=== PATIENT | female | born 1985 | race Caucasian/White ===

== ENCOUNTER 2019-03-07 23:55 | Emergency (ER) | payer MEDICAID, OTHER ==
[~2019-03-07] VITALS: Ht 160 cm; Wt 62.6 kg
--- NOTE | 2019-03-08 00:35 | NUR ---
PT BIBSELF C/O "I FEEL LIKE I HAVE SOMETHING INSIDE ME." PT AXO4. RESPIRATIONS EVEN AND UNLABORED. PT RESTLESS, ADMITS TO TAKING METH YESTERDAY. PT AMBULATED WITH STEADY GAIT TO BED 12. PENDING EVAL FROM SUKUMAR BISHOP.
[2019-03-08 01:14] LABS: BASOPHILS % (AUTO) 0.3 % (0.0-2.0); EOSINOPHILS % (AUTO) 0.4 % (0.0-6.0); HEMATOCRIT 36 % (33-45); HEMOGLOBIN 12.5 g/dL (11.5-14.8); LYMPHOCYTES # (AUTO) 2.5 /CMM (0.8-4.8); LYMPHOCYTES % (AUTO) 26.1 % (20.0-44.0); MEAN CORPUSCULAR HGB CONC 34 g/dl (31.0-36.0); MEAN CORPUSCULAR VOLUME 89 fL (82-100); MONOCYTES # (AUTO) 0.8 /CMM (0.1-1.30); MONOCYTES % (AUTO) 8.2 % (2.0-12.0); NEUTROPHILS # (AUTO) 6.2 /CMM (1.8-8.9); PLATELET COUNT (AUTO) 297 /CMM (150-450); RED BLOOD CELL COUNT(AUTO) 4.08 MIL/uL (4.0-5.2); WHITE BLOOD COUNT (AUTO) 9.5 K/uL (4.3-11.0)
[2019-03-08 01:18] LABS: APPEARANCE,URINE Clear (CLEAR); BILIRUBIN,URINE SMALL (NEGATIVE); BLOOD, URINE Trace-intact Ery/uL (NEGATIVE); COLOR,URINE Yellow (YELLOW); KETONES,URINE Negative (NEGATIVE); LEUKOCYTE ESTERASE ,URINE Negative (NEGATIVE); NITRITE, URINE Negative (NEGATIVE); PROTEIN,URINE 30 mg/dl (NEGATIVE); UGLUCOSE Negative (NEGATIVE); UROBILINOGEN,URINE 0.2 EU/dL (0.2)
[2019-03-08 01:20] LABS: CALCIUM, SERUM 8.7 mg/dL (8.5-10.1); CREATININE 0.8 mg/dL (0.6-1.3); POTASSIUM 3.8 mmol/L (3.5-5.1)
[2019-03-08 01:29] LABS: ALBUMIN 3.4 g/dL (3.4-5.0); BILIRUBIN,DIRECT 0.1 mg/dL (0.0-0.2); BILIRUBIN,TOTAL 0.2 mg/dL (0.2-1.0); TOTAL PROTEIN, SERUM 7.3 g/dL (6.4-8.2)
[2019-03-08 02:27] LABS: BACTERIA,URINE Few /HPF (None Seen); RBC,URINE 21-50 /HPF (0-2); SQUAMOUS EPITHELIAL CELL,UR Few /HPF (None Seen); WBC,URINE 21-50 /HPF (0-3)
--- NOTE | 2019-03-08 03:11 | NUR ---
Female cover stripper accompanied female patient for DR ALFONSO.
[2019-03-08] MEDS ORDERED: CEFTRIAXONE 500 MG VIAL ONE (03:13)
[2019-03-08] MEDS ORDERED: LIDOCAINE 1% INJ 50 ML MDV IJ ONE (03:13)
[2019-03-08] MEDS ORDERED: AZITHROMYCIN 250 MG TABLET ONE (03:14)
[2019-03-08] MEDS ORDERED: CEFTRIAXONE 1 G VIAL IM ONE (03:30)
[2019-03-08] MEDS ORDERED: AZITHROMYCIN 250 MG TABLET PO ONE (03:30)
--- NOTE | 2019-03-08 04:43 | NUR ---
Patient discharged to home in stable condition. Written and verbal after care instructions given. Patient verbalizes understanding of instruction.
[2019-03-08 04:44] VITALS: BP 139/80
== END 2019-03-08 04:44 | disposition home or self-care (01) ==
LOC: ER 23:57
DX: K80.20 Calculus of gallbladder without cholecystitis without obstruction (principal); F15.10 Other stimulant abuse, uncomplicated; F11.10 Opioid abuse, uncomplicated; F17.210 Nicotine dependence, cigarettes, uncomplicated; Z98.890 Other specified postprocedural states; Z59.0 Homelessness
CPT/HCPCS: 36415; 74176; 80048; 80076; 81001; 83690; 84703; 85025; 87086; 87210; 96372; 99284; J0696; J3490; 81000-TC

== ENCOUNTER 2019-09-14 17:56 | Emergency (ER) | payer MEDICAID, OTHER ==
[~2019-09-14] VITALS: Ht 160 cm; Wt 65.8 kg
--- NOTE | 2019-09-14 18:25 | NUR ---
C/O ABDOMINAL PAIN,DENIES ACCOMPANYING, PATIENT A/OX4, BREATHING EVEN AND UNLABORED, OBSERVED TALKING TO SELF.
--- NOTE | 2019-09-14 18:30 | NUR ---
patient encouraged to give a urine sample.
--- NOTE | 2019-09-14 18:45 | NUR ---
ADILAI AT BEDSIDE FOR EVAL.
--- NOTE | 2019-09-14 18:54 | NUR ---
PATIENT LEFT WITHOUT SIGNING ANY DISCHARGE PAPERWORKS, REFUSED TO WAIT FOR PAPERWORKS. ADILIA BURR.
[2019-09-14 18:57] VITALS: BP 113/75
== END 2019-09-14 18:57 | disposition home or self-care (01) ==
LOC: ER 17:56
DX: F28 Other psychotic disorder not due to a substance or known physiological condition (principal); F19.10 Other psychoactive substance abuse, uncomplicated; F17.210 Nicotine dependence, cigarettes, uncomplicated; Z79.899 Other long term (current) drug therapy; Z59.0 Homelessness

== ENCOUNTER 2019-10-05 12:32 | Emergency (ER) | payer MEDICAID ==
[~2019-10-05] VITALS: Ht 165.1 cm; Wt 68.0 kg
--- NOTE | 2019-10-05 13:00 | NUR ---
pt called to triage, pt not in waiting room
--- NOTE | 2019-10-05 13:00 | NUR ---
CALLED TO TRIAGE,NO ANSWER
[2019-10-05 13:12] VITALS: BP 131/81
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
--- NOTE | 2019-10-05 15:20 | NUR ---
PT ELOPED. PT STATED THAT SHE DID NOT WANT TO BE IN THE FAST TRACK AREA, BUT WANTED TO BE IN A BED. NO BEDS ARE CURRENTLY AVAILABLE. PT LEFT BEFORE MD WAS ABLE TO BE EVALUATED.
== END 2019-10-05 15:47 | disposition left against medical advice (07) ==
LOC: ER 12:32
DX: Z53.21 Procedure and treatment not carried out due to patient leaving prior to being seen by health care provider (principal)

== ENCOUNTER 2019-10-13 16:58 | Emergency (ER) | payer MEDICAID ==
[~2019-10-13] VITALS: Ht 162.6 cm; Wt 63.5 kg
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
--- NOTE | 2019-10-13 18:05 | NUR ---
DAVEY CRAWFORD AT BEDSIDE FOR EVAL.
[2019-10-13] MEDS ORDERED: IBUPROFEN 600 MG TABLET PO ONE ×2 (18:14→18:30)
--- NOTE | 2019-10-13 18:32 | NUR ---
URINE SPECIMEN COLLECTED AND SENT TO LAB.
[2019-10-13 18:41] LABS: BILIRUBIN,URINE Negative (NEGATIVE); BLOOD, URINE Trace-intact Ery/uL (NEGATIVE); KETONES,URINE Negative (NEGATIVE); LEUKOCYTE ESTERASE ,URINE Trace (NEGATIVE); NITRITE, URINE Negative (NEGATIVE); PH,URINE 5.5 (5.0-8.0); PROTEIN,URINE Negative (NEGATIVE); UGLUCOSE Negative (NEGATIVE); UROBILINOGEN,URINE 0.2 EU/dL (0.2)
[2019-10-13 18:51] LABS: APPEARANCE,URINE CLEAR (CLEAR); COLOR,URINE YELLOW (YELLOW)
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
[2019-10-13 19:29] LABS: BACTERIA,URINE Few /HPF (None Seen); MUCUS,URINE Few /LPF (None Seen); RBC,URINE 2-3/HPF /HPF (0-2); SQUAMOUS EPITHELIAL CELL,UR Moderate /HPF (None Seen); URINE AMORPHOUS URATE Few /HPF (None Seen)
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
--- NOTE | 2019-10-13 21:45 | NUR ---
NO ROSLYN IVÁN ARRIVED AND PT TOLD THEM THEY CAME TOO LATE AND SHE DID NOT WANT TO FILE A REPORT OR SPEAK TO THEM.
--- NOTE | 2019-10-13 21:47 | NUR ---
PT REC'D FOOD, TAP CARD, IMAGING DISC.
[2019-10-13 22:16] VITALS: BP 119/64
== END 2019-10-13 21:47 | disposition home or self-care (01) ==
LOC: ER 17:00
DX: K59.00 Constipation, unspecified (principal); Z98.890 Other specified postprocedural states; F17.200 Nicotine dependence, unspecified, uncomplicated; Z60.2 Problems related to living alone
CPT/HCPCS: 74018; 81000-TC; 84703-TC; 87086-TC

== ENCOUNTER 2020-06-24 21:46 | Emergency (ER) | payer MEDICAID ==
[~2020-06-24] VITALS: Ht 165.1 cm; Wt 63.5 kg
--- NOTE | 2020-06-24 21:51 | NUR ---
CALLED PT TO TRIAGE ROOM. NO ANSWER
[2020-06-24] MEDS ORDERED: ONDANSETRON HCL/PF 4 MG/2 ML VIAL ONE (22:29)
[2020-06-24] MEDS ORDERED: ONDANSETRON HCL/PF - ER 4 MG/2 ML VIAL IV ONE (22:30)
[2020-06-24] MEDS ORDERED: diphenhydrAMINE HCL 50 MG/ML VIAL ONE (22:32)
[2020-06-24] MEDS ORDERED: KETOROLAC TROMETHAMINE 15 MG/ML VIAL ONE (22:32)
[2020-06-24] MEDS ORDERED: METOCLOPRAMIDE HCL 10 MG/2 ML VIAL ONE (22:32)
[2020-06-24] MEDS: IV NS 0.9% 1,000 ML IV ONE (22:45)
[2020-06-24] MEDS: diphenhydrAMINE HCL 50 MG/ML VIAL IV ONE (22:46)
[2020-06-24] MEDS: METOCLOPRAMIDE HCL 10 MG/2 ML VIAL IV ONE (22:47)
[2020-06-24 22:51] LABS: CREATININE 0.8 mg/dL (0.6-1.3)
[2020-06-24] MEDS: KETOROLAC TROMETHAMINE INJ 30 MG/ML VIAL IV ONE (22:53)
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
[2020-06-24 22:58] LABS: BASOPHILS % (AUTO) 0.4 % (0.0-2.0); HEMATOCRIT 41 % (33-45); HEMOGLOBIN 13.5 g/dL (11.5-14.8); LYMPHOCYTES # (AUTO) 1.3 /CMM (0.8-4.8); LYMPHOCYTES % (AUTO) 18.8 % (20.0-44.0); MEAN CORPUSCULAR HGB CONC 33 g/dl (31.0-36.0); MEAN CORPUSCULAR VOLUME 84 fL (82-100); MONOCYTES # (AUTO) 0.7 /CMM (0.1-1.30); MONOCYTES % (AUTO) 9.6 % (2.0-12.0); NEUTROPHILS # (AUTO) 4.9 /CMM (1.8-8.9); NEUTROPHILS % (AUTO) 69.2 % (43.0-81.0); PLATELET COUNT (AUTO) 379 /CMM (150-450); RED BLOOD CELL COUNT(AUTO) 4.85 MIL/uL (4.0-5.2)
[2020-06-24 23:43] VITALS: BP 118/73
--- NOTE | 2020-06-24 23:43 | NUR ---
Patient discharged to home in stable condition. Written and verbal after care instructions given. Patient verbalizes understanding of instruction. IV removed. Catheter intact and site benign. Pressure and 4x4 applied to site. No bleeding noted.
--- NOTE | 2020-06-24 23:48 | NUR ---
IV removed. Catheter intact and site benign. Pressure and 4x4 applied to site. No bleeding noted.
== END 2020-06-24 23:48 | disposition home or self-care (01) ==
LOC: ER 21:50
DX: R51.9 Headache, unspecified (principal); F19.10 Other psychoactive substance abuse, uncomplicated; F17.210 Nicotine dependence, cigarettes, uncomplicated; Z71.1 Person with feared health complaint in whom no diagnosis is made; Z98.890 Other specified postprocedural states; Z60.2 Problems related to living alone
CPT/HCPCS: 36415; 80048; 85025; 96361; 96374; 96375; 99284; 99406; J1200; J1885; J2405 ×2; J2765; J7030

== ENCOUNTER 2020-09-08 09:11 | Emergency (ER) | payer MEDICAID ==
[~2020-09-08] VITALS: Ht 157.5 cm; Wt 65.8 kg
--- NOTE | 2020-09-08 09:15 | NUR ---
[id number] from homeless encampment, headache and nausea,vomiting today. admits to heroin use yesterday. bg 113 cost manager. Patient a/ox4, breathing even and unlabored, changed into a gown. Attached to the teletypesetter monitor.
[2020-09-08] MEDS ORDERED: PROCHLORPERAZINE EDISYLATE 10 MG/2 ML VIAL IM/IV ONE (09:30)
[2020-09-08] MEDS ORDERED: ACETAMINOPHEN ES 500 MG TABLET PO ONE (09:30)
[2020-09-08] MEDS ORDERED: SUMATRIPTAN SUCCINATE 6 MG/0.5 ML VIAL SQ ONE ×2 (09:30→09:32)
[2020-09-08] MEDS ORDERED: PROCHLORPERAZINE EDISYLATE 10 MG/2 ML VIAL ONE (09:32)
[2020-09-08] MEDS ORDERED: ACETAMINOPHEN ES 500 MG TABLET ONE (09:32)
--- NOTE | 2020-09-08 09:49 | NUR ---
PATIENT PLACED ON A BEDPAN.
--- NOTE | 2020-09-08 10:02 | NUR ---
PATIENT INSISTED ON A STRAIGHT CATHETER TO OBTAIN URINE SAMPLE. MD AWARE. STERILE TECHNIQUE OBSERVED.
[2020-09-08 10:07] LABS: BILIRUBIN,URINE SMALL (NEGATIVE); COLOR,URINE YELLOW (YELLOW); LEUKOCYTE ESTERASE ,URINE Negative (NEGATIVE); NITRITE, URINE Negative (NEGATIVE); PROTEIN,URINE 100 mg/dl (NEGATIVE); UGLUCOSE Negative (NEGATIVE)
[2020-09-08 10:28] LABS: BACTERIA,URINE Few /HPF (None Seen); SQUAMOUS EPITHELIAL CELL,UR Few /HPF (None Seen)
[2020-09-08 10:36] LABS: BASOPHILS % (AUTO) 0.2 % (0.0-2.0); EOSINOPHILS % (AUTO) 0.2 % (0.0-6.0); HEMATOCRIT 44 % (33-45); HEMOGLOBIN 14.4 g/dL (11.5-14.8); LYMPHOCYTES # (AUTO) 1.4 /CMM (0.8-4.8); LYMPHOCYTES % (AUTO) 9.8 % (20.0-44.0); MEAN CORPUSCULAR HGB CONC 33 g/dl (31.0-36.0); MEAN CORPUSCULAR VOLUME 82 fL (82-100); MONOCYTES # (AUTO) 1.8 /CMM (0.1-1.30); MONOCYTES % (AUTO) 12.7 % (2.0-12.0); NEUTROPHILS # (AUTO) 10.6 /CMM (1.8-8.9); NEUTROPHILS % (AUTO) 77.1 % (43.0-81.0); PLATELET COUNT (AUTO) 461 /CMM (150-450); WHITE BLOOD COUNT (AUTO) 13.8 K/uL (4.3-11.0)
[2020-09-08 10:46] LABS: ALANINE AMINOTRANSFERASE 15 U/L (12-78); ALBUMIN 3.3 g/dL (3.4-5.0); ALCOHOL, BLOOD < 3 mg/dL (0-0); ALKALINE PHOSPHATASE 140 U/L (46-116); ASPARTATE AMINOTRANSFERASE 24 U/L (15-37); BILIRUBIN,DIRECT 0.2 mg/dL (0.0-0.2); BILIRUBIN,TOTAL 0.6 mg/dL (0.2-1.0); CALCIUM, SERUM 9.4 mg/dL (8.5-10.1); CARBON DIOXIDE 24 mmol/L (21-32); CHLORIDE 95 mmol/L (98-107); CREATININE 0.9 mg/dL (0.6-1.3); GLUCOSE 139 mg/dL (74-106); POTASSIUM 3.6 mmol/L (3.5-5.1); SODIUM SERUM 132 mmol/L (136-145); UREA NITROGEN, BLOOD 14 mg/dL (7-18)
[2020-09-08 10:58] LABS: ACETAMINOPHEN < 0 ug/ml (10-30)
[2020-09-08] MEDS ORDERED: IV NS 0.9% 2,000 ML IV ONE (11:30)
--- NOTE | 2020-09-08 15:32 | NUR ---
SU MOLINA AT BEDSIDE FOR CONSULT
--- NOTE | 2020-09-08 15:50 | NUR ---
C/O EAR PAIN INFORMED DR. CORLEY, RECEIVED ORDER FOR IBUPROFEN 600MG X1 PO.
--- NOTE | 2020-09-08 15:57 | NUR ---
SW CONSULT: SW consult requested due to patient being homeless. SW assessed patient. Patient was observed distressed and under the sheets not making any eye contact. Patient presented alert and oriented x4. Patient was withdrawn, in a position. Patient was vague with her answers and did not want to engage in a meaningful conversation. SW asked patient if she has any family or friends for support, patient stated "I don't know". Patient stated she does not have an emergency contact. Patient denies suicidal or homicidal ideation. Patient denies visual or auditory hallucinations. Patient requested for clean underwear, pants and jacket. This SW provided patient with the clothes requested. Patient has been homeless for over 5 years. Patient refused nursing home or help with finding her a placement. Patient was receptive with homeless resources. SW provided patient with Homeless Resources packet SW gave PARIS Chapa the homeless patient waiver form to have the patient sign. SW provided patient with a copy of the [facility] homeless directory which provides information on locations for hot meals, sack lunches, food pantries, and showers. SW provided a list of mental health clinics: [facility] [address] [place] [address], ; [facility] [address] [place] [address], ; [facility] [address] [place] [address], ; a list of medical clinics: [facility] [address], [place]. [place], ; [facility] [address] [place] [address]; [facility] [address] [place] [address], ; and a list of substance abuse programs: [facility] Substance Abuse Self-helpline ; [facility] ; [facility] ; [facility] ; [facility] ; [facility] [phone]; [facility] [phone]. Patient was also provided with outpatient mental health resources to [facility] Crisis [facility] , and the [place] Suicide Prevention Lifeline . Patient was provided with a brief substance abuse intervention. Patient has been using Heroine for 5 years, daily. Patient stated she does not have any means to quit substance use however, patient was receptive to resources and referred to the following substance abuse programs: [facility] Substance Abuse Self-helpline ([phone]); [facility] [address] [place] [address] ([phone]); [facility] [address] [facility] [address] ([phone]); [facility] ([phone]); [facility] ([phone]); [facility] ([phone]); [facility] ([phone]).
[2020-09-08] MEDS ORDERED: IBUPROFEN 600 MG TABLET PO ONE (16:00)
[2020-09-08] MEDS ORDERED: IBUPROFEN 600 MG TABLET ONE (16:05)
--- NOTE | 2020-09-08 16:13 | NUR ---
PATIENT IS REFUSING TO BE DISCHARGED AT THIS TIME, REFUSING TO GET OUT OF BED. CLOTHES PROVIDED BY THE AUTOCLAVE OPERATOR.
--- NOTE | 2020-09-08 16:27 | NUR ---
PATIENT PULLED OUT IV HEPLOCK.
--- NOTE | 2020-09-08 16:34 | NUR ---
PATIENT A/OX4, AMBULATORY WITH STEADY GAIT. NO DISTRESS NOTED. BREATHING EVEN AND UNLABORED, NO SOB NOTED, IV removed. Catheter intact and site benign. Pressure and 4x4 applied to site. No bleeding noted. Patient given written and verbal discharge instructions. Patient verbalizes understanding of instructions. Patient is ambulatory with steady gait. Refuses offer of jail placement. Patient given list of available shelters in surrounding area.
[2020-09-08 16:40] VITALS: BP 103/68
== END 2020-09-08 16:41 | disposition home or self-care (01) ==
LOC: ER 09:24
DX: R11.2 Nausea with vomiting, unspecified (principal); F11.10 Opioid abuse, uncomplicated; R51.9 Headache, unspecified; Z98.890 Other specified postprocedural states; Z60.2 Problems related to living alone
CPT/HCPCS: 36415; 70450; 80048; 80076; 80299; 80307; 80320; 81001; 84703; 85025; 96360; 96361; 96372 ×2; 99285; A6403; J0780; J3030; J7030; G0480

== ENCOUNTER 2020-09-09 09:25 | Inpatient (IN) | payer MEDICAID ==
[~2020-09-09] VITALS: Ht 157.5 cm; Wt 65.8 kg
[2020-09-09] MEDS: POTASSIUM CL. PREMIX PERIPHER. 50 ML IV SCH (05:00)
[2020-09-09 16:23] LABS: BASOPHILS % (AUTO) 0.2 % (0.0-2.0); HEMATOCRIT 39 % (33-45); HEMOGLOBIN 12.9 g/dL (11.5-14.8); LYMPHOCYTES # (AUTO) 0.4 /CMM (0.8-4.8); LYMPHOCYTES % (AUTO) 1.7 % (20.0-44.0); MEAN CORPUSCULAR HGB CONC 34 g/dl (31.0-36.0); MEAN CORPUSCULAR VOLUME 79 fL (82-100); MONOCYTES # (AUTO) 2.6 /CMM (0.1-1.30); MONOCYTES % (AUTO) 11.4 % (2.0-12.0); NEUTROPHILS # (AUTO) 19.9 /CMM (1.8-8.9); NEUTROPHILS % (AUTO) 86.7 % (43.0-81.0); PLATELET COUNT (AUTO) 557 /CMM (150-450); RED BLOOD CELL COUNT(AUTO) 4.91 MIL/uL (4.0-5.2); WHITE BLOOD COUNT (AUTO) 22.9 K/uL (4.3-11.0)
[2020-09-09] MEDS ORDERED: ACETAMINOPHEN 650 MG/SUPP.RECT RC ONE ×2 (16:24→16:30)
[2020-09-09] MEDS ORDERED: LORAZEPAM INJ 2 MG/ML VIAL IV ONE (16:30)
[2020-09-09] MEDS ORDERED: IV NS 0.9% 1,000 ML BAG IV ONE ×2 (16:30→19:30)
[2020-09-09] MEDS ORDERED: LEVETIRACETAM (500MG) 500 MG in IV NS 0.9% 100 ML IV ONE (16:30)
[2020-09-09 16:31] LABS: CALCIUM, SERUM 9.6 mg/dL (8.5-10.1); CARBON DIOXIDE 21 mmol/L (21-32); CHLORIDE 97 mmol/L (98-107); CREATININE 1.1 mg/dL (0.6-1.3); GLUCOSE 218 mg/dL (74-106); SODIUM SERUM 135 mmol/L (136-145); UREA NITROGEN, BLOOD 22 mg/dL (7-18)
[2020-09-09 16:37] LABS: ALANINE AMINOTRANSFERASE 18 U/L (12-78); ALBUMIN 3.1 g/dL (3.4-5.0); ALCOHOL, BLOOD < 3 mg/dL (0-0); ALKALINE PHOSPHATASE 125 U/L (46-116); ASPARTATE AMINOTRANSFERASE 33 U/L (15-37); BILIRUBIN,DIRECT 0.3 mg/dL (0.0-0.2); BILIRUBIN,TOTAL 0.7 mg/dL (0.2-1.0); TOTAL PROTEIN, SERUM 9.7 g/dL (6.4-8.2)
[2020-09-09] MEDS ORDERED: VANCOMYCIN 1 GM in IV D5W 250 ML IV ONE (17:00)
[2020-09-09] MEDS ORDERED: CEFEPIME 1 GM in IV D5W 50 ML IV ONE (17:00)
[2020-09-09] MEDS ORDERED: PROPOFOL 100 ML ONE (17:20)
[2020-09-09] MEDS ORDERED: Z GUARD REMEDY 2 OZ OINT TP PRN (17:30)
[2020-09-09] MEDS ORDERED: ONDANSETRON HCL/PF 4 MG/2 ML VIAL IVP PRN (17:30)
[2020-09-09] MEDS ORDERED: ACETAMINOPHEN 325 MG TABLET PO PRN (17:30)
[2020-09-09] MEDS ORDERED: IV 1/2NS 1000 ML 1,000 ML IV PRN (17:30)
[2020-09-09 18:35] LABS: BILIRUBIN,URINE SMALL (NEGATIVE); COLOR,URINE YELLOW (YELLOW); LEUKOCYTE ESTERASE ,URINE NEGATIVE (NEGATIVE); NITRITE, URINE NEGATIVE (NEGATIVE); PH,URINE 7.5 (5.0-8.0); PROTEIN,URINE 100 mg/dl (NEGATIVE); UGLUCOSE NEGATIVE (NEGATIVE); UROBILINOGEN,URINE 0.2 EU/dL (0.2)
[2020-09-09 18:40] LABS: WBC,URINE 0-2 /HPF (0-3)
[2020-09-09 18:41] LABS: BACTERIA,URINE Few /HPF (None Seen); HYALINE CASTS, URINE Few /LPF (None Seen); SQUAMOUS EPITHELIAL CELL,UR Few /HPF (None Seen)
[2020-09-09 19:35] LABS: MAGNESIUM 1.9 mg/dL (1.8-2.4)
[2020-09-09] MEDS ORDERED: NOREPINEPHRINE 4 MG/4 ML AMPUL IV ONE (19:39)
[2020-09-09] MEDS: NOREPINEPHRINE 8 MG in IV NS 0.9% 242 ML IV PRN (20:01)
[2020-09-09 20:55] LABS: ABG BASE EXCESS -5.3 mmol/L; ABG PCO2 34.1 mmHg (35.0-45.0); ABG PH 7.368 (7.350-7.450); AaDO2 53.3 mmHg; COHb 0.3 % (0.5-1.5); MetHb 0.5 % (0.0-1.5); O2Hb 98.2 % (94.0-97.0); PEEP,BG 5 cm H2O; SITE, ABG Right Radial; VENT MODE, BG AC 16 500 60% +5; VT, ABG 500 mL
[2020-09-10] MEDS ORDERED: PROPOFOL 100 ML IV PRN
[2020-09-10] MEDS ORDERED: POTASSIUM CL. PREMIX PERIPHER. 200 ML ONE (02:57)
[2020-09-10] MEDS: POTASSIUM CL. PREMIX PERIPHER. 50 ML IV SCH ×6 (03:00→11:21)
[2020-09-10] MEDS: CEFEPIME 2 GM in IV D5W 100 ML IV SCH ×3 (03:00→16:56)
[2020-09-10] MEDS ORDERED: CEFEPIME 1 GM VIAL ONE (03:15)
[2020-09-10] MEDS ORDERED: PROPOFOL 100 ML ONE (04:58)
[2020-09-10 05:01] LABS: BASOPHILS % (AUTO) 0.1 % (0.0-2.0); HEMATOCRIT 40 % (33-45); HEMOGLOBIN 13.1 g/dL (11.5-14.8); LYMPHOCYTES # (AUTO) 0.9 /CMM (0.8-4.8); LYMPHOCYTES % (AUTO) 3.2 % (20.0-44.0); MEAN CORPUSCULAR HGB CONC 33 g/dl (31.0-36.0); MEAN CORPUSCULAR VOLUME 81 fL (82-100); MONOCYTES # (AUTO) 2.6 /CMM (0.1-1.30); MONOCYTES % (AUTO) 9.1 % (2.0-12.0); NEUTROPHILS # (AUTO) 25.1 /CMM (1.8-8.9); NEUTROPHILS % (AUTO) 87.6 % (43.0-81.0); PLATELET COUNT (AUTO) 324 /CMM (150-450); RED BLOOD CELL COUNT(AUTO) 4.89 MIL/uL (4.0-5.2); WHITE BLOOD COUNT (AUTO) 28.7 K/uL (4.3-11.0)
[2020-09-10 05:21] LABS: ALBUMIN 2.6 g/dL (3.4-5.0); BILIRUBIN,TOTAL 0.7 mg/dL (0.2-1.0); CALCIUM, SERUM 8.9 mg/dL (8.5-10.1); CREATININE 0.9 mg/dL (0.6-1.3); MAGNESIUM 2.2 mg/dL (1.8-2.4); PHOSPHORUS 2.9 mg/dL (2.5-4.9); POTASSIUM 3.1 mmol/L (3.5-5.1); TOTAL PROTEIN, SERUM 8.4 g/dL (6.4-8.2)
[2020-09-10 05:29] LABS: THYROID STIMULATING HORMONE 0.504 uIU/mL (0.358-3.74)
[2020-09-10] MEDS: VANCOMYCIN 1 GM in IV D5W 250 ML IV SCH ×2 (08:38→16:41)
[2020-09-10] MEDS ORDERED: ETOMIDATE 2 MG/ML VIAL ONE (10:21)
[2020-09-10] MEDS ORDERED: ROCURONIUM BROMIDE 50 MG/5 ML ONE (10:21)
[2020-09-10] MEDS: IV NS 0.9% 1,000 ML IV PRN ×2 (10:32→18:51)
[2020-09-10] MEDS: ACYCLOVIR IV 500 MG in IV D5W 100 ML IV SCH ×2 (13:09→21:01)
[2020-09-10] MEDS: NOREPINEPHRINE 8 MG in IV NS 0.9% 242 ML IV PRN (23:48)
[2020-09-11] VITALS (36 sets, daily range): BP systolic 54–156; BP diastolic 35–109
[2020-09-11] MEDS: VANCOMYCIN 1 GM in IV D5W 250 ML IV SCH ×2 (00:31→07:35)
[2020-09-11] MEDS: CEFEPIME 2 GM in IV D5W 100 ML IV SCH ×3 (01:47→17:21)
[2020-09-11] MEDS: ACYCLOVIR IV 500 MG in IV D5W 100 ML IV SCH ×3 (05:00→21:30)
[2020-09-11] MEDS: IV NS 0.9% 1,000 ML IV PRN (06:07)
[2020-09-11 06:17] LABS: CALCIUM, SERUM 8.6 mg/dL (8.5-10.1); CREATININE 1.1 mg/dL (0.6-1.3)
[2020-09-11 06:19] LABS: POTASSIUM 1.9 mmol/L (3.5-5.1)
[2020-09-11 07:50] LABS: BASOPHILS % (AUTO) 0.1 % (0.0-2.0); HEMATOCRIT 33 % (33-45); HEMOGLOBIN 9.2 g/dL (11.5-14.8); LYMPHOCYTES # (AUTO) 0.5 /CMM (0.8-4.8); LYMPHOCYTES % (AUTO) 3.3 % (20.0-44.0); MEAN CORPUSCULAR HGB CONC 28 g/dl (31.0-36.0); MEAN CORPUSCULAR VOLUME 95 fL (82-100); MONOCYTES # (AUTO) 0.5 /CMM (0.1-1.30); MONOCYTES % (AUTO) 3.4 % (2.0-12.0); NEUTROPHILS # (AUTO) 13.2 /CMM (1.8-8.9); NEUTROPHILS % (AUTO) 93.2 % (43.0-81.0); PLATELET COUNT (AUTO) 152 /CMM (150-450); RED BLOOD CELL COUNT(AUTO) 3.43 MIL/uL (4.0-5.2); WHITE BLOOD COUNT (AUTO) 14.2 K/uL (4.3-11.0)
[2020-09-11] MEDS: NOREPINEPHRINE 8 MG in IV NS 0.9% 242 ML IV PRN ×2 (08:54→12:30)
[2020-09-11 09:03] LABS: CALCIUM, SERUM 8.6 mg/dL (8.5-10.1); CREATININE 1.5 mg/dL (0.6-1.3)
[2020-09-11 09:19] LABS: ABG BASE EXCESS -18.9 mmol/L; ABG OXYGEN SATURATION 98.3 % (92.0-98.5); ABG PCO2 37.5 mmHg (35.0-45.0); ABG PH 7.067 (7.350-7.450); ABG PO2 160.4 mmHg (75.0-100.0); AaDO2 45.6 mmHg; MetHb 0.5 % (0.0-1.5); O2Hb 97.8 % (94.0-97.0); PEEP,BG 5 cm H2O; SITE, ABG Right Radial; VT, ABG 500 mL
[2020-09-11 09:41] LABS: POTASSIUM 1.7 mmol/L (3.5-5.1)
[2020-09-11] MEDS ORDERED: SODIUM BICARBONATE SYR 50 MEQ/50 ML DISP.SYRIN IV ONE ×2 (10:00→12:00)
[2020-09-11] MEDS ORDERED: POTASSIUM CL. PREMIX PERIPHER. 200 ML ONE (10:03)
[2020-09-11] MEDS ORDERED: SODIUM BICARBONATE SYR 50 MEQ/50 ML DISP.SYRIN ONE ×4 (10:11→15:53)
[2020-09-11] MEDS: POTASSIUM CL. PREMIX PERIPHER. 50 ML IV SCH ×8 (10:11→17:24)
[2020-09-11] MEDS ORDERED: IV NS 0.9% 1,000 ML IV ONE (11:00)
[2020-09-11] MEDS ORDERED: IV NS 0.9% 1,000 ML IV SCH (11:00)
[2020-09-11] MEDS ORDERED: INSULIN REGULAR, HUMAN 100 UNIT in IV NS 0.9% 99 ML IV PRN ×2 (11:30)
[2020-09-11 11:54] LABS: CALCIUM, SERUM 7.9 mg/dL (8.5-10.1)
[2020-09-11] MEDS ORDERED: EPINEPHRINE (1:10,000) SYRINGE 1 MG/10 ML DISP.SYRIN ONE ×2 (12:03→15:53)
[2020-09-11 12:10] LABS: ABG BASE EXCESS -14.6 mmol/L; ABG OXYGEN SATURATION 97.7 % (92.0-98.5); ABG PCO2 45.2 mmHg (35.0-45.0); ABG PH 7.115 (7.350-7.450); ABG PO2 140.9 mmHg (75.0-100.0); AaDO2 56.1 mmHg; COHb 0.3 % (0.5-1.5); MetHb 0.7 % (0.0-1.5); O2Hb 96.7 % (94.0-97.0); VENT MODE, BG ac 16 500 +5 35%
[2020-09-11 12:15] LABS: POTASSIUM 1.8 mmol/L (3.5-5.1)
[2020-09-11] MEDS ORDERED: DEXTROSE 50%-WATER 50 ML DISP.SYRIN ONE ×2 (14:00→15:53)
[2020-09-11] MEDS ORDERED: BLOOD SUGAR DIAGNOSTIC 1 EACH STRIP IN SCH (14:30)
[2020-09-11] MEDS ORDERED: IV D5/ 0.9% NACL 1,000 ML IV ONE (14:30)
[2020-09-11] MEDS ORDERED: DEXTROSE 50%-WATER 50 ML DISP.SYRIN IV PRN ×2 (14:30→14:58)
[2020-09-11] MEDS ORDERED: INSULIN REGULAR, HUMAN 100 UNIT/ML 3 ML VIAL SQ PRN ×2 (14:30→14:59)
[2020-09-11] MEDS ORDERED: PHENYLEPHRINE 50 MG in IV NS 0.9% 245 ML IV PRN (15:30)
[2020-09-11] MEDS ORDERED: EPINEPHRINE (1:1000) 1 MG/ML AMPUL ONE (15:53)
[2020-09-11] MEDS ORDERED: ATROPINE SULFATE 1 MG/10 ML DISP.SYRIN ONE (15:53)
[2020-09-11] MEDS: NOREPINEPHRINE 32 MG in IV NS 0.9% 218 ML IV PRN ×2 (17:16→23:46)
[2020-09-11 17:36] LABS: MAGNESIUM 1.9 mg/dL (1.8-2.4)
[2020-09-11] MEDS: BLOOD SUGAR DIAGNOSTIC 1 EACH STRIP IN SCH ×2 (20:28→23:45)
[2020-09-11] MEDS: IV D5/ 0.9% NACL 1,000 ML IV PRN (23:34)
[2020-09-11 23:46] LABS: ABG BASE EXCESS -1.3 mmol/L; ABG OXYGEN SATURATION 99.5 % (92.0-98.5); ABG PCO2 42.5 mmHg (35.0-45.0); ABG PO2 403.8 mmHg (75.0-100.0); AaDO2 266.7 mmHg; COHb 0.3 % (0.5-1.5); MetHb 0.4 % (0.0-1.5); O2Hb 98.8 % (94.0-97.0); SITE, ABG Right Radial; VENT MODE, BG AC 16 500 100% +5
[2020-09-12] VITALS (76 sets, daily range): BP systolic 0–128; BP diastolic 22–74
[2020-09-12] MEDS: CEFEPIME 2 GM in IV D5W 100 ML IV SCH ×3 (00:30→16:34)
[2020-09-12] MEDS: BLOOD SUGAR DIAGNOSTIC 1 EACH STRIP IN SCH ×4 (04:12→15:32)
[2020-09-12 04:45] LABS: CALCIUM, SERUM 7.4 mg/dL (8.5-10.1); CREATININE 2.3 mg/dL (0.6-1.3)
[2020-09-12] MEDS: ACYCLOVIR IV 500 MG in IV D5W 100 ML IV SCH ×2 (05:00→12:09)
[2020-09-12] MEDS: IV D5/ 0.9% NACL 1,000 ML IV PRN (06:30)
[2020-09-12] MEDS ORDERED: VANCOMYCIN 1 GM in IV D5W 250 ML IV SCH (09:00)
[2020-09-12] MEDS: NOREPINEPHRINE 32 MG in IV NS 0.9% 218 ML IV PRN (09:11)
[2020-09-12] MEDS ORDERED: IV D5/0.45 NACL 1,000 ML IV PRN (10:30)
[2020-09-12] MEDS: POTASSIUM CL. PREMIX PERIPHER. 50 ML IV SCH ×3 (12:10→13:25)
== END 2020-09-12 20:00 | disposition expired | DRG 720 ==
LOC: ER 09:28 → TRANSITION 22:08 → ICU 09-11 12:14
PROVIDERS: ADMIT Internal Medicine
PROC: 0BH18EZ Insertion of Endotracheal Airway into Trachea, Via Natural or Artificial Opening Endoscopic (ICD-10-PCS; 2020-09-09)
PROC: 5A2204Z Restoration of Cardiac Rhythm, Single (ICD-10-PCS; 2020-09-11)
PROC: 5A1935Z Respiratory Ventilation, Less than 24 Consecutive Hours (ICD-10-PCS; principal; 2020-09-12)
DX: A41.9 Sepsis, unspecified organism (principal); E87.6 Hypokalemia; J96.01 Acute respiratory failure with hypoxia; Z59.0 Homelessness; H70.92 Unspecified mastoiditis, left ear; G92 Toxic encephalopathy; R56.9 Unspecified convulsions; G93.40 Encephalopathy, unspecified; N17.0 Acute kidney failure with tubular necrosis; Z20.822 Contact with and (suspected) exposure to COVID-19; Z98.890 Other specified postprocedural states; F19.10 Other psychoactive substance abuse, uncomplicated; I46.9 Cardiac arrest, cause unspecified; E87.0 Hyperosmolality and hypernatremia; E11.10 Type 2 diabetes mellitus with ketoacidosis without coma
CPT/HCPCS: 31720; 36415; 36600; 70450-TC; 71045-TC; 80048-TC; 80053-TC; 80076-TC; 80202-TC; 81001; 82248-TC; 82550-TC; 82553; 82803-TC; 82962-TC; 83605-TC; 83735-TC; 83880; 84100-TC; 84443-TC; 84703-TC; 85025-TC; 85730-TC; 87040-TC; 87081-TC; 92950-TC; 94003-TC; 94760-TC; 94799-TC; 95819-TC; 99082-TC; A6403; C1751; C9803; G0378; G0480; J0133; J0171; J0461; J0692; J1815; J1953; J2060; J2370; J2405; J3370; J3480; J3490; J7030; J7040; J7042; J7050; J7060; U0003